=== PATIENT | male | born 1990 | race African-American/Black ===

== ENCOUNTER 2017-09-08 21:40 | Emergency (ER) | payer SELFPAY ==
[~2017-09-08] VITALS: Ht 172.7 cm; Wt 76.2 kg
--- NOTE | 2017-09-08 22:13 | NUR ---
PT C/O GENERALIZED WEAKNESS/LETHARGY X 2 DAYS. STATED HE HAS DULL ABDOMINAL PAIN, WELL LOSS OF APPETITE AND FEVER. DENIES FLU VACCINATION THIS YEAR.
[2017-09-08 22:22] LABS: *BILIRUBIN,URIN NEGATIVE (NEGATIVE); *BLOOD, URINE Trace-lysed (NEGATIVE); *CLARITY,URINE CLEAR (CLEAR); *COLOR,URINE LIGHT YELLOW (YELLOW); *KETONES,URINE NEGATIVE (NEGATIVE); *PROTEIN,URINE NEGATIVE (NEGATIVE); *UROBILINOGEN,URINE 0.2 E.U./dl (NORMAL); LEUKOCYTE ESTERASE ,URINE NEGATIVE (NEGATIVE); NITRITE, URINE NEGATIVE (NEGATIVE); UGLUCOSE NEGATIVE (NEGATIVE)
[2017-09-08 22:36] LABS: BACTERIA,URINE NONE SEEN /HPF (NONE SEEN); RBC,URINE 0-3 /HPF (0-3); SQUAMOUS EPITHELIAL CELL,UR FEW /HPF (NONE SEEN); WBC,URINE 0-3 /HPF (0-3)
--- NOTE | 2017-09-08 22:38 | NUR ---
BO PLAZA AT BEDSIDE FOR MSE.
[2017-09-08] MEDS: IV NORMAL SALINE 1000 ML BAG IV ONE (23:49)
[2017-09-09] VITALS: BP 118/86
--- NOTE | 2017-09-09 00:22 | NUR ---
Peripheral IV removed, catheter intact. Pressure applied. No bleeding noted at site.
--- NOTE | 2017-09-09 00:30 | NUR ---
Patient discharged to home in stable conditon. Written and verbal after care instructions given. Patient verbalizes understanding of instructions. Pt ambulated from ER w/ steady gait. Pt tok all personal belongings. no distress noted.
== END 2017-09-09 00:33 | disposition home or self-care (01) ==
LOC: ER 21:40
DX: B34.9 Viral infection, unspecified (principal)
CPT/HCPCS: 81001; 87400; 96360; 99284; A4663; J7030